=== PATIENT | male | born 1955 | race Caucasian/White ===

== ENCOUNTER 2024-08-12 11:54 | Inpatient (IN) | payer OTHER, SELFPAY ==
[2024-08-11] VITALS (9 sets, daily range): BP systolic 119–147; BP diastolic 66–95; BMI 21.7
--- NOTE | 2024-08-11 12:26 | ED.GENMED ---
History of Present Illness
General
Chief Complaint: Numbness
Time Seen by Provider: 08/11/24 12:16
History of Present Illness
History of Present Illness:
69-year-old male presents to the emergency department for evaluation of left-sided facial, arm, and leg paresthesias as well as left arm clumsiness that began last night at approximately 10 PM. He states when he woke up the symptoms seem to be
improved but again worsened at around 10 AM today. Symptoms currently are worse than they were last night. No headache, vision changes, chest pain, or shortness of breath. No nausea vomiting or diarrhea. Admits to poor prior healthcare follow up
but is on no prescription medications currently
Past History
Past History
ED Past Medical History: None
ED Past Surgical History: None
Social History
Tobacco: Smoker
Review of Systems
Review of Systems
Allergies reviewed?: Yes
All Other Systems: ROS reviewed and negative except as documented in HPI and ROS
Phy Exam
Physical Exam
Physical Exam:
GEN: Well appearing, NAD, WDWN
HEENT: Oral mucosa moist, no scleral icterus, no nasal congestion
Cardiac: Regular rate and rhythm, no murmurs
Lung: No respiratory distress, no tachypnea
MSK: No gross deformity or injuries
Skin: Good color, no pallor or jaundice, no rashes
Neuro: AO x3; CN II-XII grossly intact. BUE strength 5/5 in all mijares, moderate hypoesthesia to the left upper extremity. BLE strength 5/5 in all mijares, moderate hypoesthesia to the left lower extremity; positive ataxia left upper extremity, no
lower limb ataxia, visual mijares intact x 4 and symmetric
Psych: Calm, cooperative
Course
Orders/Labs/Results
Orders:
Orders
08/11/24 12:26
Electrocardiogram (*1) Urgent
Reason for Study: TIA/Stroke
EKG- Treatment ONCE
08/11/24 12:27
CT Head & Neck Angio W/wo IV Urgent
Comment:
Reason For Exam: LUE paresthesia/ataxia
08/11/24 12:36
Complete Blood Count/With Diff Urgent
Comprehensive Metabolic Panel Urgent
08/11/24 14:18
Aspirin 325 mg PO NOW STA
Clopidogrel Bisulfate [Plavix] 300 mg PO NOW STA
08/11/24 15:24
Admit/Transfer Patient As Directed
Co-Sign Provider:
Level of Care: Observation services
Assign to:: Telemetry
Physician / Group: trang
Diagnosis: CVA
Reason for Telemetry: CVA/TIA
Date to Stop Telemetry: 08/14/24
Time to Stop Telemetry: 11:00
Code Status As Directed
Resuscitation Status: Full Code
PRN Pain Medication Management As Directed
May give lesser potent ordered pain med per pt: Yes
preference::
Protocol:: Medication orders for pain may be administered in a
manner that supports deferring to patient preference
when the pt is:
- Requesting an ordered lesser potent pain medication.
Least to most potent pain medications are defined
as: acetaminophen < NSAID < tramadol < opioids
(morphine, oxycodone, hydromorphone).
- Requesting a lesser dose of the same medication IF
ORDERED.
- Requesting a less intrusive route of administration
if both routes are prescribed by the provider (PO <
IV).
08/11/24 16:00
Nicotine [Nicoderm Transdermal] 21 mg TRANSDERM DAILY
08/11/24 22:00
Remove Patch [Remove Nicotine Patch] 1 patch REMOVE HS
08/14/24 11:00
DC Protocol for Telemetry ONCE
08/11/24 12:36
08/11/24 12:36
Vital Signs
Initial and Last Documented VS:
Initial Vital Signs
Temp Pulse Resp BP Pulse Ox
98.0 F 97 20 141/95 97
08/11/24 12:06 08/11/24 12:06 08/11/24 12:06 08/11/24 12:06 08/11/24 12:06
Last Documented Vital Signs
Temp Pulse Resp BP Pulse Ox
98.0 F 72 23 137/90 97
08/11/24 12:06 08/11/24 15:45 08/11/24 15:45 08/11/24 15:00 08/11/24 15:45
MDM/Problems Addressed
MDM/Problems Addressed:
69-year-old male presents with left-sided paresthesias and left upper extremity ataxia most likely due to acute infarct. His initial symptoms began greater than 12 hours prior to arrival although they did wax and wane to some degree at this time;
he Is well outside the window for thrombolytic therapy thus he is not a candidate particularly given the low NIH score with nondisabling symptoms. Will admit to the hospital after dual antiplatelet load for further management
Comment
Comment:
EKG independently interpreted by me shows a sinus rhythm at a rate of 87 with occasional PACs, no ischemic changes
*Pulse Oximetry
SaO2: 97
Oxygen Mode of Delivery: Room air
Patient hypoxic: no
*Critical Care Note
Total Time (30-74mins, 75-104mins- exclusive of procedures): Not Applicable
ED Attending Note
-
Portions of this chart may have been created with voice recognition software.� Occasional wrong word or��sound alike� substitutions may have occurred due to the inherent limitations of voice recognition software.
Discharge Plan
Departure
Patient Disposition: Admit
Date of Disposition: 08/11/24
Time of Disposition: 14:44
Presentation/result/management discussed w/ accepting MD/DO: Hospitalist
Discharge Problem:
Stroke
Interventions
Interventions:
*General Assessment Last Done: 08/11/24 12:06
*ED- Fall Risk Assessment Last Done: 08/11/24 12:32
*ED COVID-19 Vaccine History Last Done: 08/11/24 12:32
ED- Neurological Assessment Last Done: 08/11/24 12:32
[2024-08-11 12:56] LABS: % Basophils 0.9 % (0-2); % Eosinophils 1.9 % (0-6); % Immature Granulocytes 0.3 % (0-0.5); % Lymphocytes 30.9 % (20.5-51.1); % Monocytes 8.4 % (1.7-9.3); % Neutrophils 57.6 % (42.2-75.2); Absolute Basophils 0.1 10^3/uL (0-0.2); Absolute Eosinophils 0.1 10^3/uL (0-0.7); Absolute Lymphocytes 2.1 10^3/uL (1.2-3.4); Absolute Monocytes 0.6 10^3/uL (0.1-0.6); Absolute Neutrophils 3.9 10^3/uL (1.4-6.5); Hematocrit 42.2 % (39.0-52.0); Hemoglobin 14.6 g/dL (13.0-18.0); Mean Corp Hgb Conc. 34.6 g/dL (33.0-37.0); Mean Corpuscular Volume 86.7 fL (80.0-94.0); Mean Platelet Volume 9.5 fL (7.4-10.4); Nucleated Red Blood Cells % 0 % (-); Platelet Count 317 10^3/uL (130-400); Red Blood Cell Count 4.87 10^6/uL (4.70-6.10); Red Cell Dist. Width 13.3 % (11.5-14.5); White Blood Cell Count 6.8 10^3/uL (4.8-10.8)
[2024-08-11 13:16] LABS: ALT (SGPT) 18 U/L (0-50); AST (SGOT) 22 U/L (17-59); Albumin 4.4 g/dl (3.5-5.0); Alkaline Phosphatase 79 U/L (38-126); Blood Urea Nitrogen 13 mg/dl (9-20); Calcium 9.7 mg/dl (8.4-10.2); Carbon Dioxide 24 mmol/L (22-30); Chloride 105 mmol/L (98-107); Estimated Creatinine Clearance 91 ml/min; Glucose 98 mg/dl (70-99); Potassium 4.9 mmol/L (3.5-5.1); Sodium 137 mmol/L (135-145); Total Bilirubin 0.4 mg/dl (0.2-1.3); Total Protein 7.5 g/dl (6.3-8.2); eGFR > 60.00
[2024-08-11] MEDS: ASPIRIN 325 MG PO (14:24)
[2024-08-11] MEDS: PLAVIX 300 MG PO (14:24)
--- NOTE | 2024-08-11 15:11 | HPS.HSE ---
Family Physician
-
Family Physician:
Chief Complaint
-
left sided tingling, weakness
History of Present Illness
69-year-old male with no significant PMH presents to the emergency department for evaluation of left-sided facial, arm, and leg paresthesias as well as left arm clumsiness that began last night at approximately 10 PM. He states when he woke up the
symptoms seem to be improved but again worsened at around 10 AM today. denied blurry vision, denies headache, dizziness or syncope. Patient denied any fever, chills, cough, congestion. Patient denied any abdominal pain, nausea, vomiting or
diarrhea. Patient denied dysuria,hematuria.
Head neck CTA with no acute findings. Admitted for further management
Medical History
Past Medical History
Past Medical History: Reports None
Past Surgical History: Reports None
Social History
Tobacco: Smoker (1.5 packs daily)
Alcohol: None
Drug: None
Living: With Family
Employment: Employed
Family History
Family History: Not pertinent
Allergies / Home Medications
Allergies reflects when Allergies were last updated in [facility].
Home Medications with original date entered in [facility]
Allergy/Medication List:
Allergies
Allergy/AdvReac Type Severity Reaction Status Date / Time
amoxicillin Allergy Swelling Verified 08/11/24 12:06
Home Medications
No Meds [No Current Medications] 08/11/24
Review of Systems
-
Constitutional: Reports No Symptoms
EENT: Reports No Symptoms
Respiratory: Reports No Symptoms
Cardiac: Reports No Symptoms
Abdomen/GI: Reports No Symptoms
: Reports No Symptoms
Musculoskeletal: Reports No Symptoms
Skin: Reports No Symptoms
Neurological: Reports Weakness and Other (Left facial and arm tingling and weakness)
Endocrine: Reports No Symptoms
Hematologic/Lymphatic: Reports No Symptoms
Psych: Reports No Symptoms
Physical Exam
Vital Signs
Vital Signs
Temp Pulse Resp BP Pulse Ox
98.0 F 69 17 140/82 97
08/11/24 12:06 08/11/24 14:45 08/11/24 14:45 08/11/24 14:00 08/11/24 14:45
Physical Exam
General: Well Developed, Well Nourished and No Apparent Distress
HEENT: NormoCephalic, Moist mucous membranes and Atraumatic
Respiratory: Clear
Cardiac: S1/S2 and Regular Rhythm; No Murmur or Rub
GI: Soft, Non Tender, Non Distended and Normal Bowel Sounds; No Organomegaly
Rectal: Deferred by Provider
Musculoskeletal: No Clubbing, No Cyanosis and No Edema
Skin: No Rash
Neuro: AO x 3 and Nonfocal/grossly intact
Psych: Calm
Laboratory Results
-
08/11/24 12:36
08/11/24 12:36
Laboratory Results
Total Bilirubin 0.4 mg/dl (0.2-1.3) 08/11/24 12:36
AST 22 U/L (17-59) 08/11/24 12:36
ALT 18 U/L (0-50) 08/11/24 12:36
Alkaline Phosphatase 79 U/L (38-126) 08/11/24 12:36
Data Reviewed
-
CT Scan: Report Reviewed by me
Lab Data: Labs Reviewed by me
Impression/Plan
-
# Acute CVA
- Patient not a TNK candidate
- Aspirin and Plavix continued
- Obtain A1c and lipid profile
- PT/OT consult
-Obtain MRI
- Neurology consulted
- Head neck CTA with impression of No acute intracranial hemorrhage.The cervical carotid and vertebral arteries are patent without significant plaque, stenosis, occlusion, or dissection.No [place] aneurysm or stenosis.No cerebral
artery significant plaque, stenosis, thrombus, or occlusion.Mild sphenoid sinusitis.COPD. Right apical pleural-based masslike opacity measuring 2.4 x 1.8 cm. Curvilinear calcification at the superior margin. Likely related to prior infection, though
in the absence of any prior studies for comparison, further evaluation/follow-up nonemergent PET/CT examination would be recommended.
# Incidental finding for right apical pleural-based masslike opacity
-Consider follow-up, PET/CT examination as outpatient
#tobacco dependence
-smokes 1.5 pack daily
-encouraged smoking cessation
-nicotine patch
# DVT prophylaxis
-SCDs
# CODE STATUS
-Full code
[2024-08-11] MEDS: NICODERM TRANSDERMAL 21 MG TRANSDERM (15:42)
--- NOTE | 2024-08-11 15:58 | W.PN.UPDATE ---
Update Note
Progress Note Update
This is an addendum to H&P written by Geraldine Awad on 08/11/2024. �Patient seen and examined independently with [employer].
69-year-old male without medical history apart from smoking presenting with left-sided facial, arm and leg paresthesia and left arm clumsiness starting last night at 10 PM. �Improved and then came back again this morning.
Concern for CVA. �Aspirin and Plavix given. �Check A1c and lipid panel. �MRI brain. �Neurology consulted.
--- NOTE | 2024-08-11 16:36 | CON.NEURO ---
Consultation
Order
Date of Consultation: 08/11/24
Requesting Provider: Geraldine Awad CRNP
Reason for Consult: Stroke
Neurology Consultation Note.
HPI: This is a 69-year-old right-handed man who presented to [facility] on 08/11/2024 with sensory deficits. According to the patient he developed an acute numbness in his left arm from the elbow down and the left side of his face,
which began last night around 10 PM.
The patient initially attributed the numbness to his work that day or possibly lying in a cramped position on the couch. However, the symptoms persisted and worsened by the morning. Upon arriving at work, he noticed his cheek becoming increasingly
numb, and the tingling sensation in his left arm intensified, extending from his elbow to his fingertips.
The patient denies any headaches motor, visual or balance changes.
ER VS: 141/95, 92, afebrile
EKG: NSR, QTc Int : 440 ms, PACs
PDMP:none
Labs: Normal CBC, comp
CT head wo contrast�unremarkable
CTA head/neck�no hemodynamically significant stenosis. Right apical pleural-based masslike opacity
PMH: No recent medical care
PSH:none
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
FH: father� at the age of 93 had strokes and heart attacks, mother had diabetes
All: Amoxicillin
ROS: Constitutional: Negative. Negative for chills, fever and unexpected weight change.
HEENT: Positive for numbness on left side of face.
Eyes: Negative. Negative for photophobia, pain and visual disturbance.
Respiratory: Negative for cough, choking and shortness of breath.
Cardiovascular: Negative for chest pain, palpitations and leg swelling.
Gastrointestinal: Negative for abdominal pain and vomiting.
Endocrine: Negative. Negative for cold intolerance.
Genitourinary: Negative for dysuria, flank pain and urgency.
Musculoskeletal: Negative for back pain, gait problem, neck pain and neck stiffness.
Skin: Negative for rash.
Allergic/Immunologic: Negative. Negative for immunocompromised state.
Neurological: Positive for numbness from elbow down on left arm, tingling from elbow to fingertips on left arm.
Psychiatric/Behavioral: Negative for behavioral problems, confusion and hallucinations.
General: Well developed. In no acute distress.
Cardio: Regular rate and rhythm without murmur. Extremities are without cyanosis or edema.
Neuro:
Mental Status: Alert, oriented to person, place, and date. Normal attention and recall. Good fund of knowledge. Follows complex requests across the midline. Comprehension, naming, and repetition intact.
Cranial Nerves: Pupils are equally round and reactive to light. EOMs full. Visual mijares full to confrontation. No ptosis. No nystagmus. V1-V3 intact to light touch and pinprick bilaterally, symmetric. Face symmetric. Impaired hearing AU.
The palate elevated well. SCMs and traps 5/5. Tongue midline. No dysarthria.
Motor: Normal bulk and tone. No pronator or arm drift. Strength 5/5 throughout. No clonus.
Reflexes: 1+ throughout the upper extremities and knees. Plantar responses flexor bilaterally.
Sensory: Normal light touch, no extinction to DSS
Coordination: No dysmetria or tremor.
Gait: deferred
NIH-0.
Assessment and Plan:
I. Acute pure sensory stroke.
II. HTN
III. Nicotine addiction
IV Right apical pleural-based masslike opacity
-Continue Telemetry monitoring
-Start antihypertensive medications if BP>140/90 mmHg and neurologically stable in 24 to 48 hours after stroke onset
-Continue DAPT after Plavix load
-Lipitor 40 mg nightly
-Please check HbA1C, LDL, urine tox
-Brain MRI wo elba
-PT.
-DVT prophylaxis.
Case was discussed with patient's 3 children pearlescent at bedside.
I personally reviewed all radiology and labs along with past medical records pertinent to current medical problems. Total time spent in patient care is 60 minutes.
Thank you for allowing us to participate in the care of this patient. We will continue to follow. Please do not hesitate to contact us with any questions or concerns.
Subjective/Objective
Subjective Data
Date of Service: August 11, 2024
Objective Data
Vital Signs
Temp Pulse Resp BP Pulse Ox
36.7 C 70 18 138/81 97
08/11/24 12:06 08/11/24 16:30 08/11/24 16:30 08/11/24 16:00 08/11/24 16:30
Lab Results
08/11/24 12:36
08/11/24 12:36
Sodium 137 mmol/L (135-145) 08/11/24 12:36
Potassium 4.9 mmol/L (3.5-5.1) 08/11/24 12:36
BUN 13 mg/dl (9-20) 08/11/24 12:36
Glucose 98 mg/dl (70-99) 08/11/24 12:36
Calcium 9.7 mg/dl (8.4-10.2) 08/11/24 12:36
Patient Allergies
amoxicillin Allergy (Verified 08/11/24 12:06)
Swelling
Medications
-
Active Medications
Generic Name Dose Route Start Last Admin
Trade Name Freq PRN Reason Stop Dose Admin
Nicotine 21 mg 08/11/24 16:00 08/11/24 15:42
Nicotine 21 Mg Patch TRANSDERM 09/08/24 15:59 21 mg
DAILY SYDNIE Administration
Patch Removal 1 patch 08/11/24 22:00
Remove Nicotine Patch REMOVE 09/08/24 21:59
HS SYDNIE
Home Medications
�Medication �Instructions �Recorded
No Meds [No Current Medications] 08/11/24
Vital Signs and Labs
-
Vital Signs and Labs:
Vital Signs
Temp Pulse Resp BP Pulse Ox
36.7 C 70 18 138/81 97
08/11/24 12:06 08/11/24 16:30 08/11/24 16:30 08/11/24 16:00 08/11/24 16:30
Lab Results
08/11/24 12:36
08/11/24 12:36
Sodium 137 mmol/L (135-145) 08/11/24 12:36
Potassium 4.9 mmol/L (3.5-5.1) 08/11/24 12:36
BUN 13 mg/dl (9-20) 08/11/24 12:36
Glucose 98 mg/dl (70-99) 08/11/24 12:36
Calcium 9.7 mg/dl (8.4-10.2) 08/11/24 12:36
Medications
-
Medications:
Generic Name Dose Route Start Last Admin
Trade Name Freq PRN Reason Stop Dose Admin
Nicotine 21 mg 08/11/24 16:00 08/11/24 15:42
Nicotine 21 Mg Patch TRANSDERM 09/08/24 15:59 21 mg
DAILY SYDNIE Administration
Patch Removal 1 patch 08/11/24 22:00
Remove Nicotine Patch REMOVE 09/08/24 21:59
HS SYDNIE
Home Medications
-
Home Medications
No Meds [No Current Medications] 08/11/24
[2024-08-11] MEDS: LIPITOR 40 MG PO (17:48)
[2024-08-11 18:46] LABS: Amphetamines Negative (Negative); Barbiturates Negative (Negative); Benzodiazepines Negative (Negative); Buprenorphine Negative (Negative); Cocaine Negative (Negative); Marijuana Negative (Negative); Methadone Negative (Negative); Methamphetamines Negative (Negative); Opiates Negative (Negative); Phencyclidine Negative (Negative); Tricyclic Antidepressants Negative (Negative)
[2024-08-12] VITALS (8 sets, daily range): BP systolic 112–149; BP diastolic 65–79; PULSE 69–76; O2SAT 98; BMI 21.3
[2024-08-12 06:14] LABS: HDL Cholesterol 45 mg/dl; LDL Cholesterol, Calculated 168 mg/dl; Total Cholesterol 234 mg/dl (50-199); Triglyceride 105 mg/dl (10-149); Very Low Density Lipoprotein 21 mg/dl (0-30)
[2024-08-12 07:26] LABS: Glycohemoglobin (HgbA1c) 5.8 % (4.0-5.6)
--- NOTE | 2024-08-12 07:44 | W.PN.HOSP.TC ---
Addendum entered and electronically signed by Sebastian Avelar MD 08/12/24 12:40:
On exam no neurological deficits except mild decrease sensory deficits on left side.
Original Note:
Today's Communication/Plan
-
Echocardiogram. CT chest.
Assessment / Plan
Assessment / Plan
Physical exam:
General: Well Developed, Well Nourished and No Apparent Distress
HEENT: Normocephalic, Atraumatic and Moist Mucous Membranes
Respiratory: Clear to Auscultation; Negative Wheezes, Rales or Rhonchi
Cardiac: Regular Rhythm and S1/S2
GI: Soft, Nontender and Nondistended
Musculoskeletal: No Clubbing, No Cyanosis and No Edema
Neuro: Awake, Alert and Oriented
Psych: Calm
A/P:
Acute right thalamic stroke:
DAPT and statin
Echocardiogram pending
Neurology consult appreciated
Seen MRI of the brain
PT OT and speech eval
Hyperlipidemia:
Statins
LDL 168
Lung mass:
Obtain CT chest with contrast today for further evaluation
Pulmonary consult
Tobacco dependence:
Continue nicotine patch
DVT prophylaxis:
Lovenox SQ
CODE STATUS:
Full code
Anticipated Discharge: Within 24 hours
Subjective/Interval History
-
Date of Service: August 12, 2024
Patient feels better in terms of paresthesias. No focal weakness.
Objective Data
-
Vital Signs:
Vital Signs
Temp Pulse Resp BP Pulse Ox
97.8 F 73 16 129/75 94
08/12/24 03:00 08/12/24 03:00 08/12/24 03:00 08/12/24 03:00 08/12/24 03:00
I&O
08/11/24 08/12/24 08/13/24
06:59 06:59 06:59
Intake Total 720 / 720
Output Total 250 / 250
Balance 470 / 470
--- NOTE | 2024-08-12 08:35 | PTOTSP ---
Speech Language Pathology
Pt seen for speech/language evaluations. No dysarthria noted. When asked orientation questions and pt was asked age, he stated '[birth year]' which is his year of . When asked again, he stated 'Oh, 69.' Question whether this was a processing error or
related to hearing status. Language evaluated via the Quick Aphasia Battery (QAB), form 1. Pt with an overall score of 9.55, indicative of language skills WFL.
Pt also seen for clinical bedside swallow evaluation. P.O. trials of puree, regular solids, and thin liquids provided. Adequate mastication, bolus formation, and A-P transit noted with no oral residue or pocketing. No overt signs of aspiration.
Educated pt on checking for pocketing with lingual or finger sweep given decreased sensation.
Recommend:
(1) Regular solids/thin liquids
(2) Aspiration precautions: check for pocketing on L with finger/lingual sweep
(3) Meds as tolerated
(4) [employer] to continue to follow
[2024-08-12] MEDS: NICODERM TRANSDERMAL 21 MG TRANSDERM (09:16)
[2024-08-12] MEDS: LOW STRENGTH ASPIRIN 81 MG PO (09:17)
[2024-08-12] MEDS: PLAVIX 75 MG PO (09:17)
--- NOTE | 2024-08-12 10:25 | PTOTSP ---
PATIENT INDEPENDENT WITH MOBILITY ON LEVEL SURFACES WELL ELEVATIONS. REPORTS FEELING '95%' HIS BASELINE FAR BALANCE. ENCOURAGED PATIENT TO AMBULATE IN HALLS. ONLY REMAINING COMPLAINT IS NUMBNESS IN LEFT TONGUE AND CHEEK. PATIENT
REQUIRING NO FURTHER ACUTE CARE SKILLED P.T. AT THIS TIME. WILL DISCHARGE FROM P.T. SERVICES.
--- NOTE | 2024-08-12 10:35 | W.PN.NEURO.1 ---
Today's Communication / Plan
-
.
Subjective/Objective
Subjective Data
Date of Service: August 12, 2024
Neurology follow-up note.
Mr. Haines reports improvement of his left facial and arm numbness since admission. He has been predominantly normotensive. No reports of headaches, change in vision, speech or strength.
Brain MRI showed an acute/subacute right thalamic infarct.
LDL�168, ua tox-neg.
TTE-pending
PMH: No recent medical care
PSH:none
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
FH: father� at the age of 93 had strokes and heart attacks, mother had diabetes
All: Amoxicillin
ROS: Constitutional: Negative. Negative for chills, fever and unexpected weight change.
HEENT: Positive for numbness on left side of face.
Eyes: Negative. Negative for photophobia, pain and visual disturbance.
Respiratory: Negative for cough, choking and shortness of breath.
Cardiovascular: Negative for chest pain, palpitations and leg swelling.
Gastrointestinal: Negative for abdominal pain and vomiting.
Endocrine: Negative. Negative for cold intolerance.
Genitourinary: Negative for dysuria, flank pain and urgency.
Musculoskeletal: Negative for back pain, gait problem, neck pain and neck stiffness.
Skin: Negative for rash.
Allergic/Immunologic: Negative. Negative for immunocompromised state.
Neurological: Positive for numbness from elbow down on left arm, tingling from elbow to fingertips on left arm.
Psychiatric/Behavioral: Negative for behavioral problems, confusion and hallucinations.
General: Well developed. In no acute distress.
Cardio: Regular rate and rhythm without murmur. Extremities are without cyanosis or edema.
Neuro:
Mental Status: Alert, oriented to person, place, and date. Normal attention and recall. Good fund of knowledge. Follows complex requests across the midline. Comprehension, naming, and repetition intact.
Cranial Nerves: Pupils are equally round and reactive to light. EOMs full. Visual mijares full to confrontation. No ptosis. No nystagmus. V1-V3 intact to light touch and pinprick bilaterally, symmetric. Face symmetric. Impaired hearing AU.
The palate elevated well. SCMs and traps 5/5. Tongue midline. No dysarthria.
Motor: Normal bulk and tone. No pronator or arm drift. Strength 5/5 throughout. No clonus.
Reflexes: 1+ throughout the upper extremities and knees. Plantar responses flexor bilaterally.
Sensory: Normal light touch, no extinction to DSS
Coordination: No dysmetria or tremor.
Gait: deferred
NIH-0.
Assessment and Plan:
I. Acute/subacute right thalamic stroke. Likely etiology of the small vessel disease.
II. DLP
III. Nicotine addiction
IV Right apical pleural-based masslike opacity
-Continue Telemetry monitoring
-Continue DAPT for 21 days followed by aspirin 81 mg once a day lifelong
-Lipitor 40 mg nightly
-Please follow-up TTE
- Outpatient neurology follow-up
I personally reviewed all radiology and labs along with past medical records pertinent to current medical problems. Total time spent in patient care is 35 minutes.
Thank you for allowing us to participate in the care of this patient. Please do not hesitate to contact us with any questions or concerns.
Objective Data
Vital Signs
Temp Pulse Resp BP Pulse Ox
36.8 C 62 16 129/73 96
08/12/24 07:00 08/12/24 07:00 08/12/24 07:00 08/12/24 07:00 08/12/24 07:00
Lab Results
08/11/24 12:36
08/11/24 12:36
Sodium 137 mmol/L (135-145) 08/11/24 12:36
Potassium 4.9 mmol/L (3.5-5.1) 08/11/24 12:36
BUN 13 mg/dl (9-20) 08/11/24 12:36
Glucose 98 mg/dl (70-99) 08/11/24 12:36
Calcium 9.7 mg/dl (8.4-10.2) 08/11/24 12:36
LDL Cholesterol, Calc 168 mg/dl 08/12/24 05:20
Ur Buprenorphine Negative (Negative) 08/11/24 18:28
Patient Allergies
amoxicillin Allergy (Verified 08/11/24 12:06)
Swelling
Vital Signs and Labs
-
Vital Signs and Labs:
Vital Signs
Temp Pulse Resp BP Pulse Ox
36.8 C 62 16 129/73 96
08/12/24 07:00 08/12/24 07:00 08/12/24 07:00 08/12/24 07:00 08/12/24 07:00
Lab Results
08/11/24 12:36
08/11/24 12:36
Sodium 137 mmol/L (135-145) 08/11/24 12:36
Potassium 4.9 mmol/L (3.5-5.1) 08/11/24 12:36
BUN 13 mg/dl (9-20) 08/11/24 12:36
Glucose 98 mg/dl (70-99) 08/11/24 12:36
Calcium 9.7 mg/dl (8.4-10.2) 08/11/24 12:36
LDL Cholesterol, Calc 168 mg/dl 08/12/24 05:20
Ur Buprenorphine Negative (Negative) 08/11/24 18:28
Medications
-
Medications:
Generic Name Dose Route Start Last Admin
Trade Name Freq PRN Reason Stop Dose Admin
Acetaminophen 650 mg 08/11/24 16:46
Acetaminophen 650 Mg Rectal Suppository RECTAL 09/08/24 16:45
Q4HPRN PRN
MARIEE, mild pain, or temp >100.4F
Acetaminophen 650 mg 08/11/24 16:46
Acetaminophen 325 Mg Tablet PO 09/08/24 16:45
Q4HPRN PRN
MARIEE, mild pain, or temp >100.4F
Aspirin 81 mg 08/12/24 08:00 08/12/24 09:17
Aspirin 81 Mg Chewable Tablet PO 09/09/24 07:59 81 mg
DAILY SYDNIE Administration
Atorvastatin Calcium 40 mg 08/11/24 18:00 08/11/24 17:48
Atorvastatin (Lipitor) 40 Mg Tablet PO 09/08/24 17:59 40 mg
QPM SYDNIE Administration
Clopidogrel Bisulfate 75 mg 08/12/24 08:00 08/12/24 09:17
Clopidogrel 75 Mg Tablet PO 09/09/24 07:59 75 mg
DAILY SYDNIE Administration
Nicotine 21 mg 08/11/24 16:00 08/12/24 09:16
Nicotine 21 Mg Patch TRANSDERM 09/08/24 15:59 21 mg
DAILY SYDNIE Administration
Patch Removal 1 patch 08/11/24 22:00 08/11/24 22:07
Remove Nicotine Patch REMOVE 09/08/24 21:59 1 patch
HS SYDNIE Administration
Sodium Chloride 0 flush 08/11/24 17:00
Sodium Chloride 0.9% (Flush) Syringe IV 09/08/24 16:59
PER PROTOCOL SYDNIE
Home Medications
-
Home Medications
No Meds [No Current Medications] 08/11/24
--- NOTE | 2024-08-12 14:06 | CON.PUL ---
Consultation
Consultation Request
Date/Time Consultation Requested: 08/12/2024
Date/Time Consultation Performed: 08/12/2024
Requesting Provider: Sebastian Avelar
Performing Provider: Debbi Sanon
Reason for Consultation: Lung nodule
Medical History
-
Chief Complaint: Stroke symptoms
History of Present Illness:
Patient is a 69-year-old gentleman who presented to the hospital with vague sensory deficit and was admitted to the hospital with suspected stroke. Subsequent MRI confirmed a 6 mm nonhemorrhagic acute/subacute right thalamic infarct. Patient had a
CT angio performed which showed an incidental right upper lobe masslike opacity. This was followed by a CT chest and pulmonary consultation was requested for further input.
Patient reports that he has not been seen by any physician in about 25 years. He does report some chronic cough with expectoration and occasional wheezing but has never been diagnosed formally with COPD/asthma or emphysema.
Past Medical History
Past Medical History: Reports None
Past Surgical History: Reports None
Social History
Tobacco: Smoker (1.5 packs daily) patient has been smoking since about age 19., Close to 60+ pack year smoking history
Alcohol: None
Drug: None
Living: With Family
Employment: Employed. Works as a [employer]. 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
Family History
Family History: Not pertinent. Father had emphysema, no family history of lung cancer however.
Allergies / Home Medications
Allergies / Home Medications
Allergies
Allergy/AdvReac Type Severity Reaction Status Date / Time
amoxicillin Allergy Swelling Verified 08/11/24 12:06
Home Medications
�Medication �Instructions �Recorded �Confirmed �Last Taken �Type
No Meds [No Current Medications] 08/11/24 08/11/24 Unknown History
Review of Systems
-
Hematologic/Lymphatic: Other (All 14 systems reviewed and negative except as stated above in the history of present illness.)
Vitals / Labs / Diagnostic Testing
Vital Signs
Temp Pulse Resp BP Pulse Ox
97.8 F 65 16 138/65 96
08/12/24 11:00 08/12/24 11:00 08/12/24 11:00 08/12/24 11:00 08/12/24 11:00
Lab Data
08/11/24 12:36
08/11/24 12:36
Diagnostic Testing:
Physical Exam
-
HEENT: Normocephalic
Cardiovascular: S1/S2
Respiratory: Clear and Non-Labored Respirations
GI: Soft
Neurology: Awake and Alert
Skin: Warm and Dry
General: Comfortable
Assessment
-
#1. RUL nodule.
- Incidental finding on CTA head and neck, Right apical pleural-based masslike opacity measuring 2.4 x 1.8 cm.
- Considering history of longstanding smoking, bilateral upper lobe emphysema, this apical nodular opacity is concerning for malignancy. However due to lack of any previous imaging, unclear if this is scarring from a prior infection.
- Patient needs additional workup as outpatient which will include PET/CT and possibly tissue diagnosis versus surveillance CT in 3 months
- Updated patient and daughter at bedside about the finding and the risk of underlying lung cancer and need for close follow-up and workup as outpatient.
- Additional workup can be pursued as outpatient
- Await CT chest
#2. Emphysema
- Patient has bilateral upper lobe emphysema noted on imaging.
- Hold off inhaler therapy considering symptom load is minimal
- Will proceed with pulmonary function testing including lung volumes and diffusion capacity assessment as outpatient
#3. H/o Smoking
- Counseled patient regarding association between smoking and risk of stroke as well as lung cancer
Other medical diagnoses:
- Acute CVA. Neurology service on case
Total time spent on this consultation/encounter _65___ minutes which includes review of history, physical exam, medications, laboratory data, personal review of imaging, extensive review of outpatient records, discussion with care team and
respiratory therapy.
Data:
ECHO 07/2024: Normal left ventricular size and systolic function. No regional wall motion
abnormalities are seen. LV ejection fraction is 55-60% by Rojas's method of
discs. Mild concentric left ventricular hypertrophy. Normal diastolic function.
Normal right ventricular size. Normal right ventricular systolic function.
Mild aortic stenosis. Peak/mean gradients are 18/8 mmHg. The valve area by
continuity equation is 1.2 cm sq.
CTA Head/neck 07/2024: Right apical pleural-based masslike opacity measuring 2.4 x 1.8 cm.
[2024-08-12] MEDS: LIPITOR 40 MG PO (18:01)
[2024-08-13 03:09] VITALS: BP 128/70
[2024-08-13 05:49] LABS: Hematocrit 42.3 % (39.0-52.0); Hemoglobin 14.8 g/dL (13.0-18.0); Mean Corpuscular Hgb 30.5 pg (27.0-31.0); Mean Platelet Volume 9.6 fL (7.4-10.4); Platelet Count 311 10^3/uL (130-400); Red Blood Cell Count 4.86 10^6/uL (4.70-6.10); Red Cell Dist. Width 13.2 % (11.5-14.5); White Blood Cell Count 8.2 10^3/uL (4.8-10.8)
[2024-08-13 06:14] LABS: Blood Urea Nitrogen 15 mg/dl (9-20); Calcium 9.2 mg/dl (8.4-10.2); Carbon Dioxide 23 mmol/L (22-30); Chloride 107 mmol/L (98-107); Estimated Creatinine Clearance 101 ml/min; Glucose 92 mg/dl (70-99); Potassium 4.8 mmol/L (3.5-5.1); Sodium 138 mmol/L (135-145); eGFR > 60.00
[2024-08-13 06:49] VITALS: BMI 21.1
[2024-08-13 07:00] VITALS: BP 131/77
[2024-08-13] MEDS: PLAVIX 75 MG PO (08:53)
[2024-08-13] MEDS: NICODERM TRANSDERMAL 21 MG TRANSDERM (08:53)
[2024-08-13] MEDS: LOW STRENGTH ASPIRIN 81 MG PO (08:53)
--- NOTE | 2024-08-13 09:51 | W.PN.HOSP.TC ---
Today's Communication/Plan
-
Discharge planning today
Assessment / Plan
Assessment / Plan
Physical exam:
General: Well Developed, Well Nourished and No Apparent Distress
HEENT: Normocephalic, Atraumatic and Moist Mucous Membranes
Respiratory: Clear to Auscultation; Negative Wheezes, Rales or Rhonchi
Cardiac: Regular Rhythm and S1/S2
GI: Soft, Nontender and Nondistended
Musculoskeletal: No Clubbing, No Cyanosis and No Edema
Neuro: Awake, Alert and Oriented
Psych: Calm
A/P:
Acute right thalamic stroke:
DAPT and statin
Echocardiogram no thrombus
Neurology consult appreciated
Seen MRI of the brain
PT OT and speech eval
Hyperlipidemia:
Statins
LDL 168
Lung mass:
Obtained CT chest with contrast today for further evaluation
Pulmonary consult appreciated
Tobacco dependence:
Continue nicotine patch
DVT prophylaxis:
Lovenox SQ
CODE STATUS:
Full code
Anticipated Discharge: Today
Subjective/Interval History
-
Date of Service: August 13, 2024
No neurodeficits. No shortness of breath
Objective Data
-
Labs:
Laboratory Results
08/13/24
05:23
WBC 8.2
Hgb 14.8
Hct 42.3
Plt Count 311
Sodium 138
Potassium 4.8
Chloride 107
Carbon Dioxide 23
BUN 15
Creatinine 0.7
Glucose 92
Calcium 9.2
Vital Signs:
Vital Signs
Temp Pulse Resp BP Pulse Ox
97.8 F 61 17 131/77 97
08/13/24 07:00 08/13/24 07:00 08/13/24 07:00 08/13/24 07:00 08/13/24 07:00
I&O
08/12/24 08/13/24 08/14/24
06:59 06:59 06:59
Intake Total 720 / 720 1560 / 1560
Output Total 250 / 250
Balance 470 / 470 1560 / 1560
[2024-08-13 11:25] VITALS: BP 120/76
--- NOTE | 2024-08-13 12:07 | W.PN.PUL3 ---
Today's Communication / Plan
-
- Recommend family preservation caseworker consult, recommend establishing a primary care provider for ongoing coordination of care
- Outpatient follow-up with pulmonary clinic, patient will need PET/CT and eventually might need tissue diagnosis for suspected lung cancer once he is off Plavix
- Pulmonary team will sign off, please call as needed, follow-up information added to discharge section.
Assessment
-
Patient is a 69-year-old gentleman who presented to the hospital with vague sensory deficit and was admitted to the hospital with suspected stroke. Subsequent MRI confirmed a 6 mm nonhemorrhagic acute/subacute right thalamic infarct. Patient had a
CT angio performed which showed an incidental right upper lobe masslike opacity. This was followed by a CT chest and pulmonary consultation was requested for further input.
Patient reports that he has not been seen by any physician in about 25 years. He does report some chronic cough with expectoration and occasional wheezing but has never been diagnosed formally with COPD/asthma or emphysema.
CT Chest 07/2024: Irregularly-shaped mass in the right upper lobe laterally. There is a satellite lesion measuring 1 cm in diameter just inferior to this in the right upper lobe. Findings worrisome for pulmonary malignancy. PET/CT recommended
A few additional scattered small pulmonary nodules are noted. These could represent metastases. Recommend attention to these on PET CT
Mildly enlarged subcarinal lymph node. This is worrisome for metastatic adenopathy
There is a soft tissue nodule anterior to the artery serving the left lower lobe. This could represent a second primary pulmonary malignancy or a metastatic lymph node. Recommend attention to this on PET/CT.
Severe emphysema of the upper lobes
#1. RUL mass (2.5x2.5 cm) with mediastinal lymphadenopathy.
- Incidental finding on CTA head and neck, Right apical pleural-based masslike opacity, confirmed by a follow-up CT chest.
- Considering history of longstanding smoking, bilateral upper lobe emphysema, mediastinal lymphadenopathy, this apical nodular opacity is very concerning for malignancy.
- Patient needs additional workup as outpatient which will include PET/CT and eventually tissue diagnosis/EBUS TBNA for mediastinal staging
- Considering patient is going to be on aspirin and Plavix for 21 days in view of acute stroke, and invasive tissue sampling will have to wait at least 3 to 4 weeks.
- I counseled patient regarding the findings of CT chest today. I explained the lymphadenopathy noted as well and how it increases the likelihood of possibly lung cancer. All questions were answered. I particularly stressed to the patient that it
is very important that he follows up with pulmonary clinic in a timely manner to pursue PET/CT and possibly tissue diagnosis. I also explained that his risk of having lung cancer is quite high and a lack of timely follow-up, can lead to worsening
of the disease and potential spread of lung cancer. Patient expressed his understanding and is agreeable to pursue further workup as outpatient.
- Discussed with primary hospitalist team, recommend family preservation caseworker consult and also recommend establishing a primary care provider prior to discharge as patient will need significant workup and coordination of care as outpatient. He has not seen a
physician in more than 25 years.
#2. Emphysema
- Patient has bilateral upper lobe emphysema noted on imaging.
- Hold off inhaler therapy considering symptom load is minimal
- Will proceed with pulmonary function testing including lung volumes and diffusion capacity assessment as outpatient
#3. H/o Smoking
- Counseled patient regarding association between smoking and risk of stroke as well as lung cancer
Other medical diagnoses:
- Acute CVA. Neurology service on case
Total time spent on this consultation/encounter _54___ minutes which includes review of history, physical exam, medications, laboratory data, personal review of imaging, extensive review of outpatient records, discussion with care team and
respiratory therapy.
Data:
CT Chest 07/2024: Irregularly-shaped mass in the right upper lobe laterally. There is a satellite lesion measuring 1 cm in diameter just inferior to this in the right upper lobe. Findings worrisome for pulmonary malignancy. PET/CT recommended
A few additional scattered small pulmonary nodules are noted. These could represent metastases. Recommend attention to these on PET CT
Mildly enlarged subcarinal lymph node. This is worrisome for metastatic adenopathy
There is a soft tissue nodule anterior to the artery serving the left lower lobe. This could represent a second primary pulmonary malignancy or a metastatic lymph node. Recommend attention to this on PET/CT.
Severe emphysema of the upper lobes
ECHO 07/2024: Normal left ventricular size and systolic function. No regional wall motion
abnormalities are seen. LV ejection fraction is 55-60% by Rojas's method of
discs. Mild concentric left ventricular hypertrophy. Normal diastolic function.
Normal right ventricular size. Normal right ventricular systolic function.
Mild aortic stenosis. Peak/mean gradients are 18/8 mmHg. The valve area by
continuity equation is 1.2 cm sq.
CTA Head/neck 07/2024: Right apical pleural-based masslike opacity measuring 2.4 x 1.8 cm.
Subjective Data
-
Date of Service:
Date of Service: August 13, 2024
Subjective:
Patient comfortably sitting in bed in no acute distress. No cough or respiratory symptoms reported.
Review of Systems
Genitourinary: Other (All 14 systems reviewed and negative except as stated above in the history of present illness.)
Objective Data
Data Reviewed
Vital Signs / I&O / Oxygen:
Vital Signs
Temp Pulse Resp BP Pulse Ox
98.4 F 72 17 120/76 98
08/13/24 11:25 08/13/24 11:25 08/13/24 11:25 08/13/24 11:25 08/13/24 11:25
Intake and Output
08/12/24 08/13/24 08/14/24
06:59 06:59 06:59
Intake Total 720 / 720 1560 / 1560
Output Total 250 / 250
Balance 470 / 470 1560 / 1560
SaO2 98
Physical Exam
General: Comfortable
HEENT: Normocephalic
Cardiovascular: S1-S2
Respiratory: Clear and Non-Labored Respirations
GI: Soft and Non Distended
Neurology: Awake and Alert
Skin: Warm
Labs/Micro/Reports
Lab Data
08/13/24 05:23
08/13/24 05:23
--- NOTE | 2024-08-13 13:05 | W.DCSUMMARY ---
Discharge Summary
Discharge Data
Date of Admission: 08/12/24
Date of Discharge: 08/13/24
-
Pending Results: No
Hospital Course
Patient is 69 years old male smoker who has not seek any medical advice for quite some time came into the hospital with paresthesias in his left side of his body and found to have acute thalamic stroke. He was started on dual antiplatelet therapy
and statins. He participated with PT OT and SP. Echocardiogram no thrombus. Patient had incidental finding of lung mass and pulmonary consulted. This mass is concerning for malignancy and pulmonary will continue to follow-up as outpatient and he
will require further workup as outpatient. He will be discharged in relatively stable condition today.
Discharge Plan
-
Patient Disposition: Home (Routine Discharge)
Discharge Diagnosis/Procedures: Acute right thalamic stroke. Right lung mass concerning for malignancy.
Diet: Regular
Activity: As tolerated
Blood Work: Please PCP to order CBC, BMP within 1 to 2 weeks
Referrals:
Primary care provider [Other] - in less than 1 week
Debbi Sanon MD [Active, Pulmonary Medicine] - in two weeks
Sandhya Houston MD [Active, Neurology] - in four to six weeks
NONE,* [Family Provider, Internal Medicine]
Prescriptions:
New
atorvastatin 40 mg Tablet
40 mg PO QPM 30 Days Qty: 30 0RF
clopidogrel 75 mg Tablet
75 mg PO DAILY 21 Days Qty: 21 0RF
nicotine 21 mg/24 hr Patch 24 Hour
21 mg transdermal DAILY 7 Days Qty: 7 0RF
aspirin 81 mg Tablet,Chewable
81 mg PO DAILY 30 Days Qty: 30 0RF
Discharge Orders:
Discharge Patient (As Directed); Ordered 08/13/24
Ordered By: Sebastian Avelar
Discharge Date and Time
Discharge Date/Time: 08/13/24 15:06
Print Language: LAO
== END 2024-08-13 15:06 | disposition home or self-care (01) | DRG 66 ==
LOC: 3 WEST ACU 11:54
PROVIDERS: Physician Assistant; Registered Nurse; ADMITTING PHYSICIAN Hospitalist; ATTENDING PHYSICIAN Hospitalist; CONSULT PHYSICIAN Internal Medicine; CONSULT PHYSICIAN Psychiatry & Neurology Neurology; EMERGENCY PHYSICIAN Emergency Medicine
DX: I63.9 Cerebral infarction, unspecified (principal); J43.9 Emphysema, unspecified; R91.1 Solitary pulmonary nodule; F17.210 Nicotine dependence, cigarettes, uncomplicated; Z88.0 Allergy status to penicillin; I10 Essential (primary) hypertension; Z79.899 Other long term (current) drug therapy; Z82.5 Family history of asthma and other chronic lower respiratory diseases; Z83.3 Family history of diabetes mellitus
CPT/HCPCS: 70496; 70498; 70551; 71260; 80048; 80053; 80061; 80306; 83036; 85025; 85027; 92523; 92610; 93005; 93306; 97116; 97162; 97166; 97535; 99285; 99406; Q9967